=== PATIENT | male | born 1940 | race Caucasian/White ===

== ENCOUNTER 2017-05-07 16:20 | Inpatient (IN) | payer MEDICARE, OTHER ==
[~2017-05-07 16:20] MED LIST: ACID CONTROL150 M2 PO; ALENDRONATE SOD70 M2 PO; AMLODIPINE BES2.5 M1 PO; AMLODIPINE BESY10 M1 PO; ARAVA20 M1 PO; ARICEPT5 M1 PO; CALCIUM 500 +1 EA11 PO; CALCIUM500 M3 PO; CELEXA20 M2 PO; CITALOPRAM HBR10 M1 PO; CLOPIDOGREL75 M1 PO; COENZYME Q-1030 MG PO; COQ-10100 M1 PO; FISH OIL 1,0001 EAC7 PO; FISH OIL 11000 MG/CA PO; FLOMAX0.4 M1 PO; HYDROXYCHLOROQ200 M2 PO; K-TAB ER10 MEQ PO; LEVAQUIN750 M1 PO; LIPITOR40 M1 PO; LOPRESSOR50 M1 PO; MEGA MULTIVITA1 EACH PO; MINOCYCLINE HCL50 M2 PO; MUCINEX600 M1 PO; MULTIVITAMINS1 EAC6 PO; PAIN & FEVER325 M1 PO; PLAQUENIL200 M1 PO; PLAVIX75 M1 PO; POTASSIUM CHLO10 ME1 PO; PRAVACHOL80 M1 PO; PREDNISONE2.5 M1 PO; PREDNISONE5 M1 PO; PROBIOTIC1 EAC7 PO; PROTONIX40 M2 PO; SERTRALINE HCL50 M4 PO; TRIAMCINOLONE A15 G2 TP; TYLENOL325 M2 PO; ULTRAM50 M1 PO; [UNRECOGNIZED DRUG - CODE] PO
[2017-05-07] MEDS ORDERED: [UNRECOGNIZED DRUG - CODE] PO (17:00)
[2017-05-07 17:28] LABS: URINE BILIRUBIN NEGATIVE (NEG); URINE BLOOD NEGATIVE (NEG); URINE GLUCOSE (UA) NEGATIVE (NEG); URINE KETONE NEGATIVE (NEG); URINE LEUKOCYTE ESTERASE NEGATIVE (NEG); URINE NITRITE NEGATIVE (NEG); URINE PROTEIN SMALL (NEG); URINE SPECIFIC GRAVITY 1.015 (1.003-1.030)
[2017-05-07 17:29] LABS: URINE APPEARANCE CLEAR; URINE COLOR YELLOW
[2017-05-07 17:36] LABS: BASO % 0.3 % (0-2); EOS % 0.9 % (0-7); EOSINOPHIL ABSOLUTE COUNT 0.1 tho/cmm (0.0-0.7); HCT-HEMATOCRIT 38.6 % (36.0-53.5); HGB-HEMOGLOBIN 12.3 gm/dl (13.5-17.0); IMMATURE GRANULOCYTES ABSOLUTE 0.04 tho/cmm (0-0.03); IMMATURE GRANULOCYTES PERCENT 0.4 % (0-0.3); LYMPH % 16.6 % (20-45); LYMPH ABSOLUTE COUNT 1.8 tho/cmm (0.8-4.5); MCH (MEAN CORPUSCULAR HGB) 27.6 pg (28.0-32.0); MCHC MEAN CORPUSCULAR HGB CONC 31.9 % (32.0-36.0); MCV (MEAN CELL VOLUME) 86.7 fl (82.0-96.0); MONO % 6.7 % (0-12); MONOCYTE ABSOLUTE COUNT 0.7 tho/cmm (0.0-1.2); NEUTROPHIL ABSOLUTE COUNT 8.2 tho/cmm (1.6-8.0); NEUTROPHIL-AUTOMATED 8.2 tho/cmm (1.6-8.0); NEUTROPHILS % 75.1 % (40-80); PLATELET COUNT 266 tho/cmm (150-450); RED BLOOD COUNT 4.45 mil/cmm (4.40-5.70); WHITE BLOOD COUNT 10.9 tho/cmm (4.0-10.0)
[2017-05-07] MEDS ORDERED: CLARITIN10 M6 PO (17:36)
[2017-05-07 17:37] LABS: URINE EPITHELIAL CELLS 0 /[HPF] (0-10); URINE RBC 0 /[HPF] (0-5); URINE WBC 0 /[HPF] (0-5)
[2017-05-07 17:38] LABS: URINE AMORPHOUS 1+
[2017-05-07 17:54] LABS: ANION GAP 9 mmol/L (0-20); BLOOD UREA NITROGEN 13 mg/dl (6-24); CALCIUM 8.6 mg/dl (8.5-10.5); CARBON DIOXIDE-VENOUS 27 mmol/L (22-32); CHLORIDE 110 mmol/l (96-110); CREATININE 0.75 mg/dl (0.60-1.30); GLUCOSE 104 mg/dL (70-110); SODIUM 142 mmol/L (135-145); eGFR VALUE FOR BLACK >90 mL/Min
[2017-05-08 03:41] LABS: ANION GAP 7 mmol/L (0-20); BLOOD UREA NITROGEN 13 mg/dl (6-24); CALCIUM 8.4 mg/dl (8.5-10.5); CARBON DIOXIDE-VENOUS 34 mmol/L (22-32); CHLORIDE 108 mmol/l (96-110); CHOLESTEROL 109 mg/dl (120-200); CREATININE 0.78 mg/dl (0.60-1.30); GLUCOSE 134 mg/dL (70-110); HDL CHOLESTEROL 38 mg/dl (40-60); LDL CHOLESTEROL 50 mg/dl (0-99); POTASSIUM 4.1 mmol/L (3.7-5.1); SODIUM 145 mmol/L (135-145); TRIGLYCERIDES 105 mg/dl (<149); VLDL 21 mg/dl (0-30); eGFR VALUE FOR BLACK >90 mL/Min
[2017-05-08 11:08] LABS: C-REACTIVE PROTEIN 6.8 mg/dl (0-0.9)
[2017-05-08 11:42] LABS: PROCALCITONIN 0.06 ng/ml (0.05-0.09)
[2017-05-08 15:08] LABS: BAL APPEARANCE CLOUDY (CLEAR)
[2017-05-08 15:09] LABS: BAL COLOR COLORLESS (COLORLESS)
[2017-05-08 16:05] LABS: BAL EOSINOPHILS 1 %; BAL LYMPHOCYTES 6 %; BAL NEUTROPHILS 92 %
[2017-05-09 13:46] LABS: BASO % 0.3 % (0-2); EOS % 1.7 % (0-7); EOSINOPHIL ABSOLUTE COUNT 0.2 tho/cmm (0.0-0.7); HCT-HEMATOCRIT 35.9 % (36.0-53.5); HGB-HEMOGLOBIN 11.6 gm/dl (13.5-17.0); IMMATURE GRANULOCYTES ABSOLUTE 0.02 tho/cmm (0-0.03); IMMATURE GRANULOCYTES PERCENT 0.2 % (0-0.3); LYMPH ABSOLUTE COUNT 1.5 tho/cmm (0.8-4.5); MCH (MEAN CORPUSCULAR HGB) 27.9 pg (28.0-32.0); MCHC MEAN CORPUSCULAR HGB CONC 32.3 % (32.0-36.0); MCV (MEAN CELL VOLUME) 86.3 fl (82.0-96.0); MEAN PLATELET VOLUME 9.9 cmc (9.4-12.4); MONO % 4.4 % (0-12); MONOCYTE ABSOLUTE COUNT 0.4 tho/cmm (0.0-1.2); NEUTROPHIL ABSOLUTE COUNT 7.1 tho/cmm (1.6-8.0); NEUTROPHIL-AUTOMATED 7.1 tho/cmm (1.6-8.0); NEUTROPHILS % 77.4 % (40-80); PLATELET COUNT 252 tho/cmm (150-450); RED BLOOD COUNT 4.16 mil/cmm (4.40-5.70); RED CELL DISTRIBUTION WIDTH 15.9 % (12.4-16.4); WHITE BLOOD COUNT 9.2 tho/cmm (4.0-10.0)
[2017-05-11] MEDS ORDERED: AUGMENTIN 875-1 EAC2 PO (13:55)
[2017-06-12] MEDS ORDERED: AUGMENTIN 875-1 EAC2 PO (19:08)
== END 2017-05-11 15:14 | DRG 167 ==
LOC: EDMED 16:20 → EMR2 21:30 → CCU 23:10 → 5WE 05-09 13:41
PROVIDERS: Emergency Medicine; Internal Medicine Critical Care Medicine; Physician Assistant; ADMIT Internal Medicine
PROC: 0B9F8ZX Drainage of Right Lower Lung Lobe, Via Natural or Artificial Opening Endoscopic, Diagnostic (ICD-10-PCS; principal; 2017-05-08)
PROC: B24BZZZ Ultrasonography of Heart with Aorta (ICD-10-PCS; 2017-05-08)
DX: J47.9 Bronchiectasis, uncomplicated (principal); J98.19 Other pulmonary collapse; I24.8 Other forms of acute ischemic heart disease; I45.10 Unspecified right bundle-branch block; R91.8 Other nonspecific abnormal finding of lung field; G47.33 Obstructive sleep apnea (adult) (pediatric); I25.10 Atherosclerotic heart disease of native coronary artery without angina pectoris; R13.10 Dysphagia, unspecified; I10 Essential (primary) hypertension; E78.5 Hyperlipidemia, unspecified; Z86.73 Personal history of transient ischemic attack (TIA), and cerebral infarction without residual deficits; Z87.891 Personal history of nicotine dependence; Z79.82 Long term (current) use of aspirin; Z79.52 Long term (current) use of systemic steroids; Z79.899 Other long term (current) drug therapy
CPT/HCPCS: C8929; G8996-GN-CK; G8997-GN-CJ; J1650; J2250; J3010; J3480; J7512; Q9967